=== PATIENT | male | born 1990 | race Native Hawaiian/Other Pacific Islander ===

== ENCOUNTER 2016-09-06 21:48 | Emergency (ER) | payer OTHER ==
[~2016-09-06] VITALS: Ht 188 cm; Wt 102.1 kg
[2016-09-06] MEDS ORDERED: methylPREDNISolone INJ 125 MG/2 ML VIAL (J2930) IV ONE (22:30)
[2016-09-06] MEDS ORDERED: FAMOTIDINE IV BAG 20 MG in APPROPRIATE DILUENT 1 EA IV ONE (22:30)
[2016-09-06] MEDS ORDERED: NS 1,000 ML IV ONE (22:30)
[2016-09-06] MEDS ORDERED: PRED20TA PO (23:45)
[2016-09-06 23:53] VITALS: BP 129/67
== END 2016-09-07 00:06 | disposition home or self-care (01) ==
LOC: M ED 22:44
DX: T78.1XXA Other adverse food reactions, not elsewhere classified, initial encounter (principal); Y92.9 Unspecified place or not applicable; Y93.9 Activity, unspecified
CPT/HCPCS: 94760; 96365; 96375; 99283; J2930